=== PATIENT | female | born 1975 | race African-American/Black ===

== ENCOUNTER → 2017-11-17 | Outpatient (CLI) | payer OTHER ==
[~2017-11-17] MED LIST: AUGM875T3 PO; DICL50TA3 PO; FLUT1SPR5 EACH NARE; OMEP40CA2 PO; VENTAER INH
== END ==
LOC: HRSP 12:17
PROVIDERS: ATTEND Specialist
DX: J44.9 Chronic obstructive pulmonary disease, unspecified (principal); R06.00 Dyspnea, unspecified; R09.02 Hypoxemia
CPT/HCPCS: 36600; 82805; 94060; 94618; 94726; 94729